=== PATIENT | male | born 1965 | race Caucasian/White ===

== ENCOUNTER 2022-02-01 11:40 | Emergency (ER) | payer OTHER ==
[2022-02-01] MEDS ORDERED: Dexamethasone 4 MG TAB ONE (12:36)
[2022-02-01] MEDS ORDERED: Ketorolac Tromethamine 30 MG/ML VIAL ONE ×2 (12:36→12:45)
== END 2022-02-01 13:10 | disposition home or self-care (01) ==
LOC: ERS 11:40
DX: M54.50 Low back pain, unspecified (principal); I10 Essential (primary) hypertension
CPT/HCPCS: 96372; 99283; J1885; J8540